=== PATIENT | male | born 1960 | race Caucasian/White ===

== ENCOUNTER 2018-10-19 00:13 | Inpatient (IN) ==
[2018-10-19] MEDS ORDERED: VANCOMYCIN INJ 1,000 MG in SODIUM CHLORIDE 0.9% 250 ML IV STA ×2 (00:29→00:33)
[2018-10-19] MEDS ORDERED: SODIUM CHLORIDE 0.9% 2,000 ML IV STA (00:29)
[2018-10-19] MEDS ORDERED: CEFEPIME 2,000 MG in SODIUM CHLORIDE 0.9% 100 ML IV STA ×2 (00:30→00:34)
[2018-10-19 01:01] LABS: Basophils # 0.1 10*3/uL (0.0-0.2); Basophils % 1.3 % (0.0-0.8); Eosinophils # 0.9 10*3/uL (0.0-0.87); Eosinophils % 9.8 % (0.00-10.9); Hematocrit 38.7 VOL% (42.0-52.0); Hemoglobin 12.9 GM/DL (14.0-18.0); Immature Granulocytes % 0.5 %; Immature Granulocytes Absolute 0.04 #; Lymphocytes # 2.2 10*3/uL (1.4-4.0); Lymphocytes % 25.3 % (21.2-54.2); Mean Corpuscular HGB Conc 33.3 GM/DL (32-36); Mean Corpuscular Volume 88.4 FL (87-102); Mean Platelet Volume 9.6 FL (9.6-12.0); Monocytes % 12.9 % (1.7-12.7); Neutrophils % 50.2 % (38.7-73.9); Platelet Count 339 T/CUMM (130-400); Red Blood Count 4.38 MC/CUMM (3.8-5.5); Red Cell Distribution Width 12.6 % (9.3-17.3); White Blood Count 8.8 T/CUMM (4-12)
[2018-10-19 01:26] LABS: Alanine Aminotransferase 25 U/L (16-61); Alkaline Phosphatase 182 U/L (45-117); Aspartate Amino Transferase 19 U/L (0-37); Bilirubin,Total < 0.39 MG/DL (0.2-1.0); Blood Urea Nitrogen 25 MG/DL (7-18); Calcium 8.3 MG/DL (8.5-10.1); Glucose 103 MG/DL (74-106); Osmolality,Calculated 286.1 MOS/KG (273-304); Total Protein 6.9 G/DL (6.4-8.3)
[2018-10-19] MEDS ORDERED: DIPH/TET/ACEL PERT BOOSTER VACCINE 0.5 ML VIAL IM ONE (02:51)
[2018-10-19] MEDS: ENOXAPARIN 40 MG/0.4 ML SYRINGE SUBCUT SCH (08:11)
[2018-10-19] MEDS: PANTOPRAZOLE 40 MG TABLET PO SCH (08:11)
[2018-10-19] MEDS: PHENYTOIN ER 100 MG CAPSULE PO SCH ×2 (10:00→21:30)
[2018-10-19] MEDS: CEFTAROLINE 600 MG in SODIUM CHLORIDE 0.9% 100 ML IV SCH (12:06)
[2018-10-19] MEDS: lamoTRIgine 25 MG TABLET PO SCH (22:14)
[2018-10-20] MEDS: CEFTAROLINE 600 MG in SODIUM CHLORIDE 0.9% 100 ML IV SCH (00:06)
[2018-10-20 06:47] LABS: Basophils # 0.1 10*3/uL (0.0-0.2); Eosinophils # 0.5 10*3/uL (0.0-0.87); Eosinophils % 4.6 % (0.00-10.9); Hematocrit 41.8 VOL% (42.0-52.0); Hemoglobin 13.6 GM/DL (14.0-18.0); Immature Granulocytes % 0.6 %; Immature Granulocytes Absolute 0.06 #; Lymphocytes # 2.5 10*3/uL (1.4-4.0); Mean Corpuscular HGB Conc 32.5 GM/DL (32-36); Mean Corpuscular Volume 89.7 FL (87-102); Mean Platelet Volume 9.8 FL (9.6-12.0); Monocytes % 12.1 % (1.7-12.7); Neutrophils % 57.7 % (38.7-73.9); Platelet Count 389 T/CUMM (130-400); Red Blood Count 4.66 MC/CUMM (3.8-5.5); Red Cell Distribution Width 12.7 % (9.3-17.3); White Blood Count 10.4 T/CUMM (4-12)
[2018-10-20 07:17] LABS: Albumin 2.7 G/DL (3.4-5.0); Calcium 8.6 MG/DL (8.5-10.1); Osmolality,Calculated 286.8 MOS/KG (273-304); Total Protein 6.7 G/DL (6.4-8.3)
[2018-10-20] MEDS: ENOXAPARIN 40 MG/0.4 ML SYRINGE SUBCUT SCH (08:15)
[2018-10-20] MEDS: PANTOPRAZOLE 40 MG TABLET PO SCH (08:16)
[2018-10-20] MEDS: lamoTRIgine 25 MG TABLET PO SCH (08:16)
[2018-10-20] MEDS: PHENYTOIN ER 100 MG CAPSULE PO SCH (08:16)
[2018-10-20] MEDS ORDERED: DEXAMETHASONE 0.5 MG TABLET PO SCH (09:00)
[2018-10-20 12:28] VITALS: BP 117/86
== END 2018-10-20 13:16 | disposition home health service (06) | DRG 603 ==
LOC: N.ED 00:13 → N.EDINP 01:37 → N.5E 02:20
PROVIDERS: ADMIT Internal Medicine; ATTEND Internal Medicine

== ENCOUNTER 2020-01-11 18:02 | Inpatient (IN) ==
[2020-01-11 19:29] LABS: Basophils # 0.1 10*3/uL (0.0-0.2); Basophils % 0.9 % (0.0-0.8); Eosinophils # 0.3 10*3/uL (0.0-0.87); Eosinophils % 2.7 % (0.00-10.9); Hematocrit 51.3 VOL% (42.0-52.0); Immature Granulocytes % 0.4 %; Immature Granulocytes Absolute 0.04 #; Lymphocytes # 3.7 10*3/uL (1.4-4.0); Lymphocytes % 35.3 % (21.2-54.2); Mean Corpuscular HGB Conc 33.1 GM/DL (32-36); Mean Corpuscular Volume 87.4 FL (87-102); Monocytes % 9.5 % (1.7-12.7); Neutrophils % 51.2 % (38.7-73.9); Platelet Count 361 T/CUMM (130-400); Red Blood Count 5.87 MC/CUMM (3.8-5.5); White Blood Count 10.6 T/CUMM (4-12)
[2020-01-11] MEDS ORDERED: VANCOMYCIN INJ 1,000 MG in SODIUM CHLORIDE 0.9% 250 ML IV STA (19:35)
[2020-01-11] MEDS ORDERED: VANCOMYCIN 1,000 MG VIAL ONE (19:38)
[2020-01-11 20:07] LABS: Alanine Aminotransferase 25 U/L (16-61); Albumin 3.5 G/DL (3.4-5.0); Alkaline Phosphatase 212 U/L (45-117); Aspartate Amino Transferase 18 U/L (0-37); Bilirubin,Total < 0.39 MG/DL (0.2-1.0); Blood Urea Nitrogen 20 MG/DL (7-18); Calcium 9.2 MG/DL (8.5-10.1); Estimated Glom Filtration Rate 63 ML/MIN; Glucose 102 MG/DL (74-106); Osmolality,Calculated 283.3 MOS/KG (273-304); Total Protein 7.9 G/DL (6.4-8.3)
[2020-01-11] MEDS ORDERED: SODIUM CHLORIDE 0.9% 1,000 ML IV STA (21:26)
[2020-01-12] MEDS ORDERED: ACETAMINOPHEN 325 MG TABLET PO PRN (01:23)
[2020-01-12] MEDS ORDERED: ONDANSETRON 4 MG/2 ML VIAL IV PRN (01:23)
[2020-01-12] MEDS ORDERED: ALUMINUM/MAGNES/SIMETH MAX STR 30 ML UDCUP PO PRN (01:23)
[2020-01-12] MEDS ORDERED: DOCUSATE SODIUM 100 MG CAPSULE PO PRN (01:23)
[2020-01-12] MEDS: SODIUM CHLORIDE 0.9% 1,000 ML IV SCH ×2 (04:09→18:06)
[2020-01-12] MEDS: CEFEPIME 2,000 MG in SODIUM CHLORIDE 0.9% 100 ML IV SCH ×2 (04:50→09:55)
[2020-01-12] MEDS: ENOXAPARIN 40 MG/0.4 ML SYRINGE SUBCUT SCH (07:30)
[2020-01-12 08:16] LABS: Basophils # 0.1 10*3/uL (0.0-0.2); Basophils % 1.3 % (0.0-0.8); Eosinophils # 0.3 10*3/uL (0.0-0.87); Hematocrit 43.2 VOL% (42.0-52.0); Hemoglobin 14.4 GM/DL (14.0-18.0); Immature Granulocytes % 0.5 %; Immature Granulocytes Absolute 0.04 #; Lymphocytes # 2.8 10*3/uL (1.4-4.0); Lymphocytes % 36.7 % (21.2-54.2); Mean Corpuscular HGB Conc 33.3 GM/DL (32-36); Mean Corpuscular Volume 85.2 FL (87-102); Mean Platelet Volume 9.2 FL (9.6-12.0); Monocytes % 10.9 % (1.7-12.7); Neutrophils % 46.6 % (38.7-73.9); Platelet Count 300 T/CUMM (130-400); Red Blood Count 5.07 MC/CUMM (3.8-5.5); Red Cell Distribution Width 13.2 % (9.3-17.3); White Blood Count 7.5 T/CUMM (4-12)
[2020-01-12 09:33] LABS: Albumin 2.8 G/DL (3.4-5.0); Bilirubin,Total 0.93 MG/DL (0.2-1.0); Calcium 8.3 MG/DL (8.5-10.1); Total Protein 6.5 G/DL (6.4-8.3)
[2020-01-12] MEDS: DEXAMETHASONE 0.5 MG TABLET PO SCH ×2 (09:40→20:47)
[2020-01-12] MEDS: lamoTRIgine 100 MG TABLET PO SCH ×2 (09:40→20:46)
[2020-01-12] MEDS: PHENYTOIN ER 100 MG CAPSULE PO SCH ×2 (09:40→20:46)
[2020-01-12] MEDS ORDERED: LIDOCAINE 1% 20 ML VIAL ONE (09:49)
[2020-01-12] MEDS: VANCOMYCIN INJ 1,000 MG in SODIUM CHLORIDE 0.9% 250 ML IV SCH ×2 (09:54→20:47)
[2020-01-12] MEDS ORDERED: SEVOFLURANE 1 UNIT/15 MINUTE INH ONE (10:45)
[2020-01-12] MEDS ORDERED: LIDOCAINE 2% 5 ML VIAL ONE (10:45)
[2020-01-12] MEDS ORDERED: fentaNYL 100 MCG/2 ML VIAL ONE (10:45)
[2020-01-12] MEDS ORDERED: propofoL 200 MG/20 ML VIAL IV ONE (10:45)
[2020-01-12] MEDS ORDERED: MIDAZOLAM 2 MG/2 ML VIAL ONE (10:45)
[2020-01-12] MEDS: HYDROmorphone 2 MG/1 ML VIAL IV PRN (20:48)
[2020-01-13 05:49] LABS: Basophils # 0.1 10*3/uL (0.0-0.2); Basophils % 1.3 % (0.0-0.8); Eosinophils # 0.3 10*3/uL (0.0-0.87); Eosinophils % 3.8 % (0.00-10.9); Hematocrit 43.2 VOL% (42.0-52.0); Hemoglobin 14.4 GM/DL (14.0-18.0); Immature Granulocytes % 0.3 %; Immature Granulocytes Absolute 0.03 #; Lymphocytes # 2.3 10*3/uL (1.4-4.0); Lymphocytes % 26.8 % (21.2-54.2); Mean Corpuscular HGB Conc 33.3 GM/DL (32-36); Mean Corpuscular Volume 87.8 FL (87-102); Mean Platelet Volume 9.4 FL (9.6-12.0); Monocytes % 9.6 % (1.7-12.7); Neutrophils % 58.2 % (38.7-73.9); Platelet Count 307 T/CUMM (130-400); Red Blood Count 4.92 MC/CUMM (3.8-5.5); Red Cell Distribution Width 13.1 % (9.3-17.3); White Blood Count 8.7 T/CUMM (4-12)
[2020-01-13 06:20] LABS: Albumin 2.8 G/DL (3.4-5.0); Bilirubin,Total 1.2 MG/DL (0.2-1.0); Calcium 8.4 MG/DL (8.5-10.1); Osmolality,Calculated 281.3 MOS/KG (273-304); Total Protein 6.5 G/DL (6.4-8.3)
[2020-01-13] MEDS: HYDROmorphone 2 MG/1 ML VIAL IV PRN (07:53)
[2020-01-13] MEDS: ENOXAPARIN 40 MG/0.4 ML SYRINGE SUBCUT SCH (08:51)
[2020-01-13] MEDS: DEXAMETHASONE 0.5 MG TABLET PO SCH ×2 (08:52→21:36)
[2020-01-13] MEDS: PHENYTOIN ER 100 MG CAPSULE PO SCH ×2 (08:52→21:36)
[2020-01-13] MEDS: lamoTRIgine 100 MG TABLET PO SCH ×2 (08:52→21:35)
[2020-01-13] MEDS: VANCOMYCIN INJ 1,000 MG in SODIUM CHLORIDE 0.9% 250 ML IV SCH (09:16)
[2020-01-13] MEDS: LEVOFLOXACIN 500 MG TABLET PO SCH (13:39)
[2020-01-13] MEDS ORDERED: SODIUM CHLORIDE 0.9% 1,000 ML IV ONE (16:30)
[2020-01-14] MEDS: ENOXAPARIN 40 MG/0.4 ML SYRINGE SUBCUT SCH (08:35)
[2020-01-14] MEDS: PHENYTOIN ER 100 MG CAPSULE PO SCH (08:36)
[2020-01-14] MEDS: LEVOFLOXACIN 500 MG TABLET PO SCH (08:37)
[2020-01-14] MEDS: DEXAMETHASONE 0.5 MG TABLET PO SCH (08:37)
[2020-01-14] MEDS: lamoTRIgine 100 MG TABLET PO SCH (08:37)
[2020-01-14 12:23] VITALS: BP 123/67
== END 2020-01-14 13:38 | disposition home health service (06) | DRG 476 ==
LOC: N.ED 18:02 → N.EDINP 01-12 01:02 → N.3E 01-12 01:53
PROVIDERS: ADMIT Internal Medicine; ATTEND Internal Medicine

== ENCOUNTER 2022-03-30 02:32 | Inpatient (IN) ==
[2022-03-30] MEDS ORDERED: SODIUM CHLORIDE 0.9% 1,000 ML IV STA (02:52)
[2022-03-30] MEDS ORDERED: ONDANSETRON 4 MG/2 ML VIAL IV STA (02:52)
[2022-03-30] MEDS ORDERED: LEVALBUTEROL 1.25 MG/3 ML NEB RESP TX STA (02:52)
[2022-03-30] MEDS ORDERED: methylPREDNISolone SOD SUC 125 MG/2 ML VIAL IV STA (02:54)
[2022-03-30 03:02] LABS: Basophils # 0.4 10*3/uL (0.0-0.2); Basophils % 0.7 % (0.0-0.8); Eosinophils # 14.2 10*3/uL (0.0-0.87); Hematocrit 36.5 VOL% (42.0-52.0); Hemoglobin 11.9 GM/DL (14.0-18.0); Immature Granulocytes % 3.7 %; Lymphocytes # 1.2 10*3/uL (1.4-4.0); Lymphocytes % 2.1 % (21.2-54.2); Mean Corpuscular HGB Conc 32.6 GM/DL (32-36); Mean Corpuscular Volume 78.8 FL (87-102); Mean Platelet Volume 9.4 FL (9.6-12.0); Monocytes # 3.3 10*3/uL (0.11-0.8); Monocytes % 6.1 % (1.7-12.7); Neutrophils % 61.4 % (38.7-73.9); Platelet Count 405 T/CUMM (130-400); Red Blood Count 4.63 MC/CUMM (3.8-5.5); Red Cell Distribution Width 13.4 % (9.3-17.3)
[2022-03-30 03:04] LABS: White Blood Count 54.5 T/CUMM (4-12)
[2022-03-30 03:27] LABS: Alanine Aminotransferase < 6 U/L (16-61); Albumin 1.9 G/DL (3.4-5.0); Alkaline Phosphatase 227 U/L (45-117); Aspartate Amino Transferase 23 U/L (0-37); Blood Urea Nitrogen 28 MG/DL (7-18); Calcium 7.6 MG/DL (8.5-10.1); Carbon Dioxide 22 MMOL/L (21-32); Chloride 102 MMOL/L (98-107); Glucose 95 MG/DL (74-106); Osmolality,Calculated 278.8 MOS/KG (273-304); Potassium 3.9 MMOL/L (3.5-5.1); Sodium 137 MMOL/L (136-145); Total Protein 5.7 G/DL (6.4-8.2)
[2022-03-30 03:33] LABS: Band Neutrophils 3 % (0-10); Eosinophils 27 % (0-10); Hypochromia Slight; Lymphocytes 2 % (20-55); Platelet Estimate Adequate; Total Cells Counted 100
[2022-03-30 03:34] LABS: Microcytosis Slight
[2022-03-30] MEDS ORDERED: PIPERACILLIN/TAZOBACTAM 3,375 MG in SODIUM CHLORIDE 0.9% 100 ML IV STA (03:38)
[2022-03-30] MEDS ORDERED: VANCOMYCIN INJ 1,000 MG in SODIUM CHLORIDE 0.9% 250 ML IV STA (03:38)
[2022-03-30 03:43] LABS: Arterial Base Excess iSTAT -5 MMOL/L (-2.5-2.5); Arterial Bicarbonate iSTAT 17.7 MMOL/L (20-26); Arterial O2 Saturation iSTAT 98 % (95-100); Arterial PCO2 iSTAT 24 MM HG (35-48); Arterial PO2 iSTAT 99 MM HG (80-95); Arterial Total CO2 iSTAT 18 MMO/L (23-27); Arterial pH iSTAT 7.467 (7.35-7.45)
[2022-03-30] MEDS ORDERED: ONDANSETRON 4 MG/2 ML VIAL IV PRN (03:47)
[2022-03-30] MEDS ORDERED: FOSPHENYTOIN 1,000 MG.PE in SODIUM CHLORIDE 0.9% 250 ML IV STA (04:02)
[2022-03-30 04:11] LABS: INR 1.5; PT Patient Result 16.1 SECS (10.1-12.1)
[2022-03-30] MEDS ORDERED: FOSPHENYTOIN 500 MG.PE/10 ML VIAL ONE (05:08)
[2022-03-30] MEDS ORDERED: ALBUTEROL 2.5 MG/3 ML NEB RESP TX PRN (05:18)
[2022-03-30] MEDS: SODIUM CHLORIDE 0.9% 1,000 ML IV SCH ×3 (05:58→19:39)
[2022-03-30] MEDS ORDERED: SODIUM CHLORIDE 0.9% 500 ML IV ONE ×2 (05:58→10:25)
[2022-03-30] MEDS: ALBUTEROL/IPRATROPIUM 3 ML NEB RESP TX SCH ×3 (07:10→21:12)
[2022-03-30 07:56] LABS: Basophils # 0.3 10*3/uL (0.0-0.2); Basophils % 0.6 % (0.0-0.8); Eosinophils % 19.9 % (0.00-10.9); Hematocrit 36.7 VOL% (42.0-52.0); Hemoglobin 11.7 GM/DL (14.0-18.0); Immature Granulocytes % 3.7 %; Immature Granulocytes Absolute 1.68 #; Lymphocytes # 0.6 10*3/uL (1.4-4.0); Lymphocytes % 1.2 % (21.2-54.2); Mean Corpuscular HGB Conc 31.9 GM/DL (32-36); Mean Corpuscular Volume 80.7 FL (87-102); Mean Platelet Volume 10.3 FL (9.6-12.0); Monocytes # 2.7 10*3/uL (0.11-0.8); Monocytes % 5.9 % (1.7-12.7); Neutrophils % 68.7 % (38.7-73.9); Platelet Count 381 T/CUMM (130-400); Red Blood Count 4.55 MC/CUMM (3.8-5.5); Red Cell Distribution Width 13.6 % (9.3-17.3)
[2022-03-30 08:02] LABS: White Blood Count 45.1 T/CUMM (4-12)
[2022-03-30 08:03] LABS: Alanine Aminotransferase < 6 U/L (16-61); Albumin 1.9 G/DL (3.4-5.0); Alkaline Phosphatase 231 U/L (45-117); Aspartate Amino Transferase 32 U/L (0-37); Blood Urea Nitrogen 27 MG/DL (7-18); Calcium 7.5 MG/DL (8.5-10.1); Carbon Dioxide 20 MMOL/L (21-32); Chloride 105 MMOL/L (98-107); Glucose 107 MG/DL (74-106); Osmolality,Calculated 274.1 MOS/KG (273-304); Potassium 4.4 MMOL/L (3.5-5.1); Sodium 135 MMOL/L (136-145); Total Protein 5.7 G/DL (6.4-8.2)
[2022-03-30 08:19] LABS: Band Neutrophils 5 % (0-10); Eosinophils 20 % (0-10); Hypochromia Slight; Lymphocytes 2 % (20-55); Microcytosis Slight; Platelet Estimate Adequate; Total Cells Counted 100
[2022-03-30] MEDS ORDERED: ENOXAPARIN 40 MG/0.4 ML SYRINGE SUBCUT SCH (09:00)
[2022-03-30] MEDS: DEXAMETHASONE 0.5 MG TABLET PO SCH ×2 (10:24→20:59)
[2022-03-30] MEDS: lamoTRIgine 100 MG TABLET PO SCH ×2 (10:24→20:59)
[2022-03-30] MEDS: PIPERACILLIN/TAZOBACTAM 3,375 MG in SODIUM CHLORIDE 0.9% 100 ML IV SCH ×2 (14:06→22:12)
[2022-03-30] MEDS ORDERED: SODIUM CHLORIDE 0.9% 1,000 ML IV ONE (16:49)
[2022-03-30] MEDS: ENOXAPARIN 60 MG/0.6 ML SYRINGE SUBCUT SCH (18:25)
[2022-03-30] MEDS: VANCOMYCIN INJ 1,000 MG in SODIUM CHLORIDE 0.9% 250 ML IV SCH (18:47)
[2022-03-30] MEDS: PHENYTOIN ER 100 MG CAPSULE PO SCH (20:59)
[2022-03-31] MEDS: ALBUTEROL/IPRATROPIUM 3 ML NEB RESP TX SCH ×4 (00:08→19:20)
[2022-03-31] MEDS: traMADol 50 MG TABLET PO PRN ×2 (00:41→09:33)
[2022-03-31] MEDS: SODIUM CHLORIDE 0.9% 1,000 ML IV SCH ×3 (01:17→21:44)
[2022-03-31 02:48] LABS: Basophils # 0.2 10*3/uL (0.0-0.2); Basophils % 0.5 % (0.0-0.8); Eosinophils # 8.7 10*3/uL (0.0-0.87); Eosinophils % 21.9 % (0.00-10.9); Hematocrit 32.2 VOL% (42.0-52.0); Hemoglobin 9.9 GM/DL (14.0-18.0); Immature Granulocytes % 2.9 %; Immature Granulocytes Absolute 1.14 #; Lymphocytes # 1.1 10*3/uL (1.4-4.0); Lymphocytes % 2.8 % (21.2-54.2); Mean Corpuscular HGB Conc 30.7 GM/DL (32-36); Mean Corpuscular Volume 84.1 FL (87-102); Mean Platelet Volume 9.7 FL (9.6-12.0); Monocytes # 3.1 10*3/uL (0.11-0.8); Monocytes % 7.7 % (1.7-12.7); Neutrophils % 64.2 % (38.7-73.9); Platelet Count 371 T/CUMM (130-400); Red Blood Count 3.83 MC/CUMM (3.8-5.5); Red Cell Distribution Width 13.4 % (9.3-17.3); White Blood Count 39.9 T/CUMM (4-12)
[2022-03-31 03:11] LABS: Albumin 1.5 G/DL (3.4-5.0); Bilirubin,Total 0.5 MG/DL (0.20-1.00); Calcium 7.4 MG/DL (8.5-10.1); Osmolality,Calculated 284.4 MOS/KG (273-304); Potassium 3.7 MMOL/L (3.5-5.1)
[2022-03-31 03:11] LABS: Band Neutrophils 3 % (0-10); Eosinophils 20 % (0-10); Lymphocytes 1 % (20-55); Polychromasia Slight; Total Cells Counted 100
[2022-03-31 03:12] LABS: Microcytosis Slight; Ovalocytes Slight
[2022-03-31 03:13] LABS: Hypochromia Slight
[2022-03-31] MEDS: PIPERACILLIN/TAZOBACTAM 3,375 MG in SODIUM CHLORIDE 0.9% 100 ML IV SCH ×3 (05:25→21:45)
[2022-03-31] MEDS: ENOXAPARIN 60 MG/0.6 ML SYRINGE SUBCUT SCH ×2 (07:04→18:15)
[2022-03-31] MEDS: DEXAMETHASONE 0.5 MG TABLET PO SCH ×2 (09:29→21:39)
[2022-03-31] MEDS: PHENYTOIN ER 100 MG CAPSULE PO SCH ×2 (09:32→21:44)
[2022-03-31] MEDS: lamoTRIgine 100 MG TABLET PO SCH ×2 (09:33→21:38)
[2022-03-31] MEDS: VANCOMYCIN INJ 1,000 MG in SODIUM CHLORIDE 0.9% 250 ML IV SCH ×2 (09:38→20:00)
[2022-03-31 13:32] LABS: Bilirubin,Urine Negative (Negative); Glucose,Urine (UA) Negative (Negative); Ketones,Urine Negative (Negative); Mucus,Urine Occasional /LPF (Occasional); Nitrite,Urine Negative (Negative); Protein,Urine Negative (Negative); RBC,Urine 1 /HPF (0-4); Urine Appearance Clear (Clear); Urine Color Yellow (Yellow); Urine Specific Gravity 1.015 (1.001-1.035); Urine pH 5.5 (4.5-8.0)
[2022-03-31 13:33] LABS: Blood, Urine Negative (Negative)
[2022-04-01] MEDS: ALBUTEROL/IPRATROPIUM 3 ML NEB RESP TX SCH ×4 (00:30→19:25)
[2022-04-01] MEDS: PIPERACILLIN/TAZOBACTAM 3,375 MG in SODIUM CHLORIDE 0.9% 100 ML IV SCH ×4 (04:51→21:07)
[2022-04-01 05:11] LABS: Albumin 1.6 G/DL (3.4-5.0); Bilirubin,Total 0.5 MG/DL (0.20-1.00); Calcium 7.6 MG/DL (8.5-10.1); Potassium 3.9 MMOL/L (3.5-5.1); Total Protein 4.7 G/DL (6.4-8.2)
[2022-04-01 05:46] LABS: Basophils # 0.2 10*3/uL (0.0-0.2); Basophils % 0.5 % (0.0-0.8); Eosinophils # 8.6 10*3/uL (0.0-0.87); Eosinophils % 29.4 % (0.00-10.9); Hemoglobin 9.7 GM/DL (14.0-18.0); Immature Granulocytes % 2.1 %; Immature Granulocytes Absolute 0.61 #; Lymphocytes # 0.9 10*3/uL (1.4-4.0); Mean Corpuscular HGB Conc 31.3 GM/DL (32-36); Mean Corpuscular Volume 82.2 FL (87-102); Mean Platelet Volume 9.7 FL (9.6-12.0); Monocytes # 2.3 10*3/uL (0.11-0.8); Monocytes % 7.7 % (1.7-12.7); Neutrophils % 57.3 % (38.7-73.9); Platelet Count 364 T/CUMM (130-400); Red Blood Count 3.77 MC/CUMM (3.8-5.5); Red Cell Distribution Width 13.7 % (9.3-17.3); White Blood Count 29.4 T/CUMM (4-12)
[2022-04-01 05:50] LABS: Band Neutrophils 2 % (0-10); Eosinophils 33 % (0-10); Lymphocytes 2 % (20-55); Microcytosis Slight; Ovalocytes Slight; Polychromasia Slight; Total Cells Counted 100
[2022-04-01 05:51] LABS: Platelet Estimate Normal
[2022-04-01 05:52] LABS: Hypochromia Slight
[2022-04-01] MEDS: ENOXAPARIN 60 MG/0.6 ML SYRINGE SUBCUT SCH ×2 (06:22→17:52)
[2022-04-01] MEDS: SODIUM CHLORIDE 0.9% 1,000 ML IV SCH ×2 (06:22→18:16)
[2022-04-01] MEDS: lamoTRIgine 100 MG TABLET PO SCH ×2 (09:35→21:07)
[2022-04-01] MEDS: PHENYTOIN ER 100 MG CAPSULE PO SCH ×2 (09:35→21:07)
[2022-04-01] MEDS: DEXAMETHASONE 0.5 MG TABLET PO SCH ×2 (09:35→21:07)
[2022-04-01] MEDS: VANCOMYCIN INJ 1,000 MG in SODIUM CHLORIDE 0.9% 250 ML IV SCH ×2 (09:44→21:05)
[2022-04-01] MEDS ORDERED: diphenhydrAMINE 50 MG/1 ML VIAL IV ONE (10:30)
[2022-04-01] MEDS ORDERED: GRANISETRON 1 MG/1 ML VIAL IV SCH (10:30)
[2022-04-01] MEDS ORDERED: DEXAMETHASONE INJ 20 MG in SODIUM CHLORIDE 0.9% 50 ML IV ONE (10:30)
[2022-04-01] MEDS ORDERED: FAMOTIDINE 20 MG TABLET PO ONE (10:30)
[2022-04-01] MEDS ORDERED: HYDROmorphone 1 MG/1 ML SYRINGE IV ONE (10:58)
[2022-04-01] MEDS ORDERED: SODIUM CHLORIDE 0.9% IV ONE (11:00)
[2022-04-01] MEDS ORDERED: PACLITAXEL IV ONE (11:00)
[2022-04-01] MEDS ORDERED: GRANISETRON 1 MG/1 ML VIAL IV ONE (11:30)
[2022-04-01] MEDS ORDERED: CARBOplatin 450 MG in SODIUM CHLORIDE 0.9% 250 ML IV ONE (15:00)
[2022-04-01] MEDS: MORPHINE 2 MG/1 ML SYRINGE IV PRN (18:13)
[2022-04-02] MEDS: ALBUTEROL/IPRATROPIUM 3 ML NEB RESP TX SCH ×4 (00:02→20:39)
[2022-04-02] MEDS: SODIUM CHLORIDE 0.9% 1,000 ML IV SCH ×2 (02:59→14:22)
[2022-04-02] MEDS: PIPERACILLIN/TAZOBACTAM 3,375 MG in SODIUM CHLORIDE 0.9% 100 ML IV SCH ×3 (05:08→21:33)
[2022-04-02] MEDS: ENOXAPARIN 60 MG/0.6 ML SYRINGE SUBCUT SCH (05:08)
[2022-04-02] MEDS: traMADol 50 MG TABLET PO PRN (06:32)
[2022-04-02] MEDS: PHENYTOIN ER 100 MG CAPSULE PO SCH ×2 (08:26→21:15)
[2022-04-02] MEDS: DEXAMETHASONE 0.5 MG TABLET PO SCH ×2 (08:26→21:14)
[2022-04-02] MEDS: lamoTRIgine 100 MG TABLET PO SCH ×2 (08:26→21:14)
[2022-04-02] MEDS: VANCOMYCIN INJ 1,000 MG in SODIUM CHLORIDE 0.9% 250 ML IV SCH ×2 (08:27→21:11)
[2022-04-02 09:21] LABS: Basophils # 0.2 10*3/uL (0.0-0.2); Basophils % 0.8 % (0.0-0.8); Eosinophils # 4.4 10*3/uL (0.0-0.87); Eosinophils % 23.4 % (0.00-10.9); Hematocrit 33.5 VOL% (42.0-52.0); Hemoglobin 10.1 GM/DL (14.0-18.0); Immature Granulocytes % 2.2 %; Immature Granulocytes Absolute 0.42 #; Lymphocytes # 0.8 10*3/uL (1.4-4.0); Lymphocytes % 4.5 % (21.2-54.2); Mean Corpuscular HGB Conc 30.1 GM/DL (32-36); Mean Platelet Volume 9.5 FL (9.6-12.0); Monocytes # 0.5 10*3/uL (0.11-0.8); Monocytes % 2.6 % (1.7-12.7); Neutrophils % 66.5 % (38.7-73.9); Platelet Count 415 T/CUMM (130-400); Red Blood Count 3.99 MC/CUMM (3.8-5.5); White Blood Count 18.9 T/CUMM (4-12)
[2022-04-02 09:40] LABS: Eosinophils 17 % (0-10); Hypochromia Slight; Lymphocytes 5 % (20-55); Microcytosis Slight; Platelet Estimate Adequate; Total Cells Counted 100
[2022-04-02 09:45] LABS: Albumin 1.6 G/DL (3.4-5.0); Bilirubin,Total 0.7 MG/DL (0.20-1.00); Calcium 7.3 MG/DL (8.5-10.1); Osmolality,Calculated 281.1 MOS/KG (273-304); Potassium 3.8 MMOL/L (3.5-5.1); Total Protein 5.2 G/DL (6.4-8.2)
[2022-04-02] MEDS: MORPHINE 2 MG/1 ML SYRINGE IV PRN (10:52)
[2022-04-02] MEDS: HYDROmorphone 1 MG/1 ML SYRINGE IV PRN (12:36)
[2022-04-02] MEDS: APIXABAN 5 MG TABLET PO SCH (21:14)
[2022-04-03] MEDS: ALBUTEROL/IPRATROPIUM 3 ML NEB RESP TX SCH ×3 (01:09→14:56)
[2022-04-03] MEDS: SODIUM CHLORIDE 0.9% 1,000 ML IV SCH ×2 (02:06→13:25)
[2022-04-03] MEDS: HYDROmorphone 1 MG/1 ML SYRINGE IV PRN ×2 (02:38→11:04)
[2022-04-03] MEDS: PIPERACILLIN/TAZOBACTAM 3,375 MG in SODIUM CHLORIDE 0.9% 100 ML IV SCH (04:20)
[2022-04-03 05:46] LABS: Basophils # 0.2 10*3/uL (0.0-0.2); Basophils % 0.8 % (0.0-0.8); Eosinophils # 6.3 10*3/uL (0.0-0.87); Eosinophils % 27.1 % (0.00-10.9); Hematocrit 33.3 VOL% (42.0-52.0); Hemoglobin 10.2 GM/DL (14.0-18.0); Immature Granulocytes % 1.3 %; Immature Granulocytes Absolute 0.31 #; Lymphocytes # 0.9 10*3/uL (1.4-4.0); Mean Corpuscular HGB Conc 30.6 GM/DL (32-36); Mean Corpuscular Volume 81.6 FL (87-102); Mean Platelet Volume 9.8 FL (9.6-12.0); Monocytes # 0.5 10*3/uL (0.11-0.8); Monocytes % 1.9 % (1.7-12.7); Neutrophils % 64.9 % (38.7-73.9); Platelet Count 371 T/CUMM (130-400); Red Blood Count 4.08 MC/CUMM (3.8-5.5); White Blood Count 23.3 T/CUMM (4-12)
[2022-04-03 05:57] LABS: Calcium 7.3 MG/DL (8.5-10.1); Osmolality,Calculated 277.4 MOS/KG (273-304); Potassium 4.1 MMOL/L (3.5-5.1)
[2022-04-03 06:31] LABS: Eosinophils 10 % (0-10); Lymphocytes 8 % (20-55); Total Cells Counted 100
[2022-04-03 06:32] LABS: Platelet Estimate Normal
[2022-04-03] MEDS: APIXABAN 5 MG TABLET PO SCH (09:13)
[2022-04-03] MEDS: PHENYTOIN ER 100 MG CAPSULE PO SCH (09:14)
[2022-04-03] MEDS: traMADol 50 MG TABLET PO PRN (09:15)
[2022-04-03] MEDS: lamoTRIgine 100 MG TABLET PO SCH (09:15)
[2022-04-03] MEDS: DEXAMETHASONE 0.5 MG TABLET PO SCH (09:16)
[2022-04-03] MEDS: VANCOMYCIN INJ 1,000 MG in SODIUM CHLORIDE 0.9% 250 ML IV SCH (09:17)
[2022-04-03] MEDS ORDERED: CEFUROXIME 500 MG TABLET PO SCH (11:00)
[2022-04-03] MEDS ORDERED: AZITHROMYCIN 250 MG TABLET PO SCH (11:00)
[2022-04-03 12:21] VITALS: BP 100/64
[2022-04-03] MEDS: MORPHINE 2 MG/1 ML SYRINGE IV PRN (15:08)
== END 2022-04-03 17:27 | disposition hospice, home (50) | DRG 175 ==
LOC: N.ED 02:32 → N.EDINP 03:47 → SUATTDRO 03:47 → N.TELEN 04:24
PROVIDERS: ADMIT Internal Medicine; ATTEND Internal Medicine